=== PATIENT | male | born 1950 | race Caucasian/White ===

== ENCOUNTER 2017-05-06 22:08 | Inpatient (IN) | payer OTHER ==
[~2017-05-06] VITALS: Ht 172.7 cm; Wt 142.0 kg
[2017-05-06] MEDS ORDERED: FUROSEMIDE 40 MG/4 ML VIAL ONE (22:18)
[2017-05-06] MEDS ORDERED: methylPREDNISolone SOD SUCC 125 MG/2 ML VL ONE (22:18)
[2017-05-06 22:50] LABS: Basophils # (auto) 0.1 uL; Basophils % (auto) 0.5 % (0.0-2.0); Eosinophils # (auto) 0.3 uL; Eosinophils % (auto) 2.9 % (0.0-7.0); Hematocrit 45.6 % (41.0-53.0); Hemoglobin 14.9 g/dL (13.5-17.5); Lymphocytes % (auto) 20.2 % (10.0-50.0); Mean Corpuscular Hemoglobin 27.5 pg (28.0-32.0); Mean Corpuscular Hgb Conc. 32.8 g/dL (32.0-36.0); Mean Corpuscular Volume 83.8 fL (80.0-100.0); Monocytes # (auto) 1.1 uL; Monocytes % (auto) 11.5 % (0.0-12.0); Neutrophils # (auto) 6.5 uL; Neutrophils % (auto) 64.9 % (37.0-80.0); Platelet Count (auto) 262 10^3/uL (140-450); Red Blood Cells 5.44 10^6/uL (4.5-5.90); Red Cell Distribution Width 15.8 % (11.8-14.3)
[2017-05-06 23:00] LABS: INR 1.1 (0.9-1.15); Partial Thromboplastin Time 27.3 sec (22.64-33.71)
[2017-05-06] MEDS ORDERED: IPRATROPIUM BROM 0.5 MG/2.5ML INH SOL NEB ONE (23:00)
[2017-05-06] MEDS ORDERED: ALBUTEROL SULF 2.5 MG/0.5ML(0.5%) NEB SOLN NEB ONE (23:00)
[2017-05-06 23:29] LABS: Albumin 4.2 g/dL (3.4-5.0); BUN/Creatinine Ratio 18.9; Bilirubin, Total 0.4 mg/dL (0.2-1.0); Calcium 8.6 mg/dL (8.5-10.1); Magnesium 2.3 mg/dL (1.6-2.6); Total Protein 8.9 g/dL (6.4-8.2)
[2017-05-06] MEDS ORDERED: methylPREDNISolone SOD SUCC 125 MG/2 ML VL IV ONE (23:30)
[2017-05-06] MEDS ORDERED: FUROSEMIDE 40 MG/4 ML VIAL IV ONE (23:30)
[2017-05-06 23:44] LABS: Urine Bacteria NONE SEEN /hpf (None Seen); Urine Blood Negative /uL (Negative); Urine Specific Gravity 1.007 (1.001-1.035); Urine WBC <1 /hpf (0 - 3)
[2017-05-07] MEDS ORDERED: ACETAMINOPHEN 500 MG TAB PO PRN (06:30)
[2017-05-07] MEDS ORDERED: HYDROcodone-ACET 5/325MG TAB PO PRN (06:30)
[2017-05-07] MEDS ORDERED: DEXTROSE (50%) 50ML SYRG IV PRN (06:30)
[2017-05-07] MEDS ORDERED: ONDANSETRON HCL 4 MG/2 ML VIAL IV PRN (06:30)
[2017-05-07] MEDS: ACCU-CHEK COMFORT CURVE STRIP VI SCH ×4 (08:26→22:06)
[2017-05-07] MEDS: InsuLIN REG 1unit/0.01ml Soln (100units/ml) SC SCH ×3 (08:26→17:21)
[2017-05-07 09:00] VITALS: BP 142/94
[2017-05-07] MEDS ORDERED: SIMV-8 PO (09:07)
[2017-05-07] MEDS ORDERED: FURO20TA3 PO (09:07)
[2017-05-07] MEDS ORDERED: AMLO5TAB2 PO (09:08)
[2017-05-07] MEDS ORDERED: CARV12.544 PO (09:09)
[2017-05-07] MEDS ORDERED: LISI40TA PO (09:10)
[2017-05-07] MEDS ORDERED: METF-370 PO (09:10)
[2017-05-07] MEDS ORDERED: ASPI81TA27 PO (09:11)
[2017-05-07] MEDS ORDERED: FUROSEMIDE 40 MG/4 ML VIAL IV SCH (10:00)
[2017-05-07] MEDS: ALBUTEROL SULF 2.5 MG/0.5ML(0.5%) NEB SOLN NEB SCH ×2 (12:17→19:47)
[2017-05-07] MEDS: IPRATROPIUM BROM 0.5 MG/2.5ML INH SOL NEB SCH ×2 (12:17→19:47)
[2017-05-07 12:36] LABS: Basophils # (auto) 0 uL; Basophils % (auto) 0.1 % (0.0-2.0); Eosinophils # (auto) 0 uL; Hematocrit 44.3 % (41.0-53.0); Hemoglobin 14.4 g/dL (13.5-17.5); Lymphocytes # (auto) 0.6 uL; Lymphocytes % (auto) 8.4 % (10.0-50.0); Mean Corpuscular Hemoglobin 27.2 pg (28.0-32.0); Mean Corpuscular Hgb Conc. 32.5 g/dL (32.0-36.0); Mean Corpuscular Volume 83.6 fL (80.0-100.0); Monocytes # (auto) 0.1 uL; Neutrophils # (auto) 6.1 uL; Neutrophils % (auto) 89.5 % (37.0-80.0); Platelet Count (auto) 255 10^3/uL (140-450); Red Blood Cells 5.31 10^6/uL (4.5-5.90); Red Cell Distribution Width 15.7 % (11.8-14.3); White Blood Cell 6.8 10^3/uL (4.4-10.8)
[2017-05-07 12:39] VITALS: BP 136/82
[2017-05-07 12:53] LABS: BUN/Creatinine Ratio 15.4; Calcium 8.5 mg/dL (8.5-10.1); Potassium 4.1 mmol/L (3.5-5.1)
[2017-05-07 13:12] VITALS: BP 147/72
[2017-05-07] MEDS: METOLAZONE 5 MG TAB PO SCH (16:00)
[2017-05-07 17:21] VITALS: BP 145/77
[2017-05-07] MEDS ORDERED: PATIENTS OWN MEDICATION (Simvastatin 1 TAB) PO SCH (18:00)
[2017-05-07] MEDS: FUROSEMIDE 40 MG/4 ML VIAL IV SCH (19:50)
[2017-05-07 22:00] VITALS: BP 141/76
[2017-05-07] MEDS ORDERED: InsuLIN REG 1unit/0.01ml Soln (100units/ml) SC SCH (22:00)
[2017-05-07] MEDS: CARVEDILOL 12.5 MG TAB PO SCH (22:04)
[2017-05-08] MEDS: IPRATROPIUM BROM 0.5 MG/2.5ML INH SOL NEB SCH ×3 (00:38→12:38)
[2017-05-08] MEDS: ALBUTEROL SULF 2.5 MG/0.5ML(0.5%) NEB SOLN NEB SCH ×3 (00:38→12:38)
[2017-05-08 05:10] VITALS: BP 120/62
[2017-05-08] MEDS: ACCU-CHEK COMFORT CURVE STRIP VI SCH ×3 (05:24→16:40)
[2017-05-08] MEDS: InsuLIN REG 1unit/0.01ml Soln (100units/ml) SC SCH ×3 (05:49→16:40)
[2017-05-08 06:30] LABS: Calcium 8.8 mg/dL (8.5-10.1); Magnesium 2.3 mg/dL (1.6-2.6); Potassium 3.9 mmol/L (3.5-5.1)
[2017-05-08 06:32] LABS: BUN/Creatinine Ratio 27.4
[2017-05-08 09:00] VITALS: BP 114/55
[2017-05-08] MEDS ORDERED: amLODIPine BESYLATE 5 MG TAB PO SCH (10:00)
[2017-05-08] MEDS ORDERED: PATIENTS OWN MEDICATION (Lisinopril 40 MG) PO SCH (10:00)
[2017-05-08] MEDS ORDERED: ASPirin-EC 81 mg tab PO SCH (10:00)
[2017-05-08] MEDS ORDERED: LISINOPRIL 20 MG TAB PO SCH (10:00)
[2017-05-08] MEDS: CARVEDILOL 12.5 MG TAB PO SCH (10:12)
[2017-05-08] MEDS: FUROSEMIDE 40 MG/4 ML VIAL IV SCH (10:12)
[2017-05-08] MEDS: METOLAZONE 5 MG TAB PO SCH (10:14)
[2017-05-08 13:00] VITALS: BP 110/57
[2017-05-08 17:00] VITALS: BP 130/70
[2017-05-08] MEDS ORDERED: PATIENTS OWN MEDICATION (xarelto 20 MG) PO SCH (17:00)
[2017-05-08] MEDS ORDERED: RIVAROXABAN 20 MG TAB PO SCH (18:00)
[2017-05-08] MEDS ORDERED: PRAVASTATIN SODIUM 20 MG TAB PO SCH (22:00)
== END 2017-05-08 17:00 | disposition home health service (06) | DRG 637 ==
LOC: ER 22:08 → TELE 22:09 → TELE-WESTW 05-07 08:33
PROVIDERS: ADMIT Nurse Practitioner Family; ATTEND Internal Medicine
DX: E11.65 Type 2 diabetes mellitus with hyperglycemia (principal); I50.43 Acute on chronic combined systolic (congestive) and diastolic (congestive) heart failure; E87.2 Acidosis; E66.01 Morbid (severe) obesity due to excess calories; J44.1 Chronic obstructive pulmonary disease with (acute) exacerbation; Z68.42 Body mass index [BMI] 45.0-49.9, adult; I11.0 Hypertensive heart disease with heart failure; Z95.1 Presence of aortocoronary bypass graft; I48.0 Paroxysmal atrial fibrillation; E78.5 Hyperlipidemia, unspecified; E66.9 Obesity, unspecified; I25.10 Atherosclerotic heart disease of native coronary artery without angina pectoris; Z83.3 Family history of diabetes mellitus; Z87.891 Personal history of nicotine dependence; Z71.89 Other specified counseling
CPT/HCPCS: 36415; 36600; 71045; 80048; 80053; 81001; 82805; 82962; 83036; 83605; 83735; 83880; 84484; 85025; 85379; 85610; 85730; 87040; 93005; 93306; 94640; 94761; 96374; 96375; J1815

== ENCOUNTER 2017-09-20 09:20 | Inpatient (IN) | payer OTHER ==
[~2017-09-20] VITALS: Ht 172.7 cm; Wt 137.0 kg
[~2017-09-20 09:20] MED LIST: AMLO5TAB2 PO; ASPI81TA27 PO; CARV12.544 PO; LISI40TA PO; METF-370 PO; SIMV-8 PO
[2017-09-20 10:05] LABS: Basophils # (auto) 0.1 uL; Eosinophils # (auto) 0.2 uL; Mean Corpuscular Volume 82.4 fL (80.0-100.0); Monocytes # (auto) 0.8 uL; Neutrophils # (auto) 5.3 uL; Red Cell Distribution Width 16.2 % (11.8-14.3)
[2017-09-20 10:07] LABS: Eosinophils % (auto) 2.6 % (0.0-7.0); Hematocrit 43.7 % (41.0-53.0); Hemoglobin 14.1 g/dL (13.5-17.5); Lymphocytes # (auto) 1.6 uL; Lymphocytes % (auto) 19.7 % (10.0-50.0); Mean Corpuscular Hemoglobin 26.5 pg (28.0-32.0); Mean Corpuscular Hgb Conc. 32.2 g/dL (32.0-36.0); Monocytes % (auto) 10.3 % (0.0-12.0); Neutrophils % (auto) 66.4 % (37.0-80.0); Platelet Count (auto) 266 10^3/uL (140-450)
[2017-09-20 10:09] LABS: Urine Bacteria NONE SEEN /hpf (None Seen); Urine Blood Negative /uL (Negative); Urine WBC 1 /hpf (0 - 3)
[2017-09-20 10:23] LABS: Albumin 3.7 g/dL (3.4-5.0); BUN/Creatinine Ratio 17.4; Calcium 8.8 mg/dL (8.5-10.1)
[2017-09-20 10:26] LABS: Bilirubin, Total 0.7 mg/dL (0.2-1.0); Total Protein 8.6 g/dL (6.4-8.2)
[2017-09-20] MEDS ORDERED: TETANUS-DIPTH-ACEL PERTUSSIS 0.5ML SYRG IM ONE (11:00)
[2017-09-20] MEDS ORDERED: SPIRONOLACTONE 25 MG TAB PO ONE (11:00)
[2017-09-20] MEDS ORDERED: FUROSEMIDE 40 MG/4 ML VIAL IV ONE ×2 (11:00→13:45)
[2017-09-20] MEDS ORDERED: MORPHINE SULFATE 8mg/ml INJ SDV IV PRN ×3 (11:00→13:30)
[2017-09-20] MEDS ORDERED: SODIUM CHLORIDE 0.9% 1,000 ML IV ONE (11:00)
[2017-09-20 11:48] LABS: Magnesium 2.5 mg/dL (1.6-2.6)
[2017-09-20] MEDS ORDERED: FURO40TA4 PO (12:45)
[2017-09-20] MEDS ORDERED: RIVA20TA PO (12:47)
[2017-09-20] MEDS ORDERED: TEMAZEPAM 15 MG CAP PO PRN (13:30)
[2017-09-20] MEDS ORDERED: LORazepam 0.5 MG TAB PO PRN (13:30)
[2017-09-20] MEDS ORDERED: ACETAMINOPHEN 500 MG TAB PO PRN (13:30)
[2017-09-20] MEDS ORDERED: PROMETHAZINE HCL 25 MG/ML 1ML IV PRN (13:30)
[2017-09-20] MEDS ORDERED: NITROGLYCERIN 0.4 MG SL TAB SL PRN (13:30)
[2017-09-20] MEDS ORDERED: ALBUTEROL SULF 2.5 MG/0.5ML(0.5%) NEB SOLN NEB PRN (13:30)
[2017-09-20] MEDS ORDERED: DEXTROSE (50%) 50ML SYRG IV PRN (13:30)
[2017-09-20] MEDS ORDERED: HYDROcodone-ACET 5/325MG TAB PO PRN (13:30)
[2017-09-20] MEDS ORDERED: ASPirin-EC 81 mg tab PO ONE (13:45)
[2017-09-20] MEDS ORDERED: cefTRIAXone 1GM/10ml IVPUSH 10 ML IV ONE (13:45)
[2017-09-20] MEDS ORDERED: AZITHROMYCIN 500MG/ 250ML 250 ML IV ONE (13:45)
[2017-09-20] MEDS ORDERED: amLODIPine BESYLATE 5 MG TAB PO ONE (13:45)
[2017-09-20] MEDS ORDERED: LISINOPRIL 20 MG TAB PO ONE (13:45)
[2017-09-20] MEDS ORDERED: RIVAROXABAN 20 MG TAB PO ONE (13:45)
[2017-09-20] MEDS ORDERED: PANTOPRAZOLE 40 MG TAB PO ONE (13:45)
[2017-09-20] MEDS ORDERED: NITROGLYCERIN 0.2MG/HR TOPICAL PATCH TD ONE (13:45)
[2017-09-20] MEDS ORDERED: POTASSIUM CHL 20 Meq TABLET PO ONE (13:45)
[2017-09-20] MEDS ORDERED: CARVEDILOL 12.5 MG TAB PO ONE (13:45)
[2017-09-20] MEDS: LISINOPRIL 20 MG TAB PO SCH (13:52)
[2017-09-20 14:15] LABS: Alcohol, Urine < 3.0 mg/dL (0-5); Amphetamine Screen, Urine NEGATIVE (NEGATIVE); Barbiturate Scree,Urine NEGATIVE (NEGATIVE); Benzodiazephine Screen, Urine NEGATIVE (NEGATIVE); Cannabinoid Screen, Urine NEGATIVE (NEGATIVE); Cocaine Screen, Urine NEGATIVE (NEGATIVE); Opiate Scree,Urine NEGATIVE (NEGATIVE); Phencyclidine Screen, Urine NEGATIVE (NEGATIVE)
[2017-09-20] MEDS: SODIUM CHLOR 0.9% PF (SALINE LOCK) 10ML VIAL/SYR IV SCH ×2 (14:19→22:13)
[2017-09-20] MEDS: ACCU-CHEK COMFORT CURVE STRIP VI SCH ×2 (17:29→22:13)
[2017-09-20] MEDS: InsuLIN REG 1unit/0.01ml Soln (100units/ml) SC SCH ×2 (17:30→22:14)
[2017-09-20] MEDS: LEVOFLOXACIN 500MG 100 ML IV SCH (17:40)
[2017-09-20] MEDS: ALBUTEROL SULF 2.5 MG/0.5ML(0.5%) NEB SOLN NEB SCH (18:25)
[2017-09-20 20:22] VITALS: BP 145/85
[2017-09-20 20:30] VITALS: BP 114/43
[2017-09-20] MEDS ORDERED: ATORVASTATIN 20 MG TAB PO SCH (22:00)
[2017-09-20] MEDS: CARVEDILOL 12.5 MG TAB PO SCH (22:12)
[2017-09-20] MEDS: CLINDAMYCIN 600MG IV 50 ML IV SCH (22:13)
[2017-09-21] MEDS: ALBUTEROL SULF 2.5 MG/0.5ML(0.5%) NEB SOLN NEB SCH ×3 (00:51→13:26)
[2017-09-21 03:36] VITALS: BP 105/53
[2017-09-21 05:32] VITALS: BP 97/42
[2017-09-21] MEDS: SODIUM CHLOR 0.9% PF (SALINE LOCK) 10ML VIAL/SYR IV SCH ×2 (05:34→14:34)
[2017-09-21] MEDS: CLINDAMYCIN 600MG IV 50 ML IV SCH ×2 (05:34→14:34)
[2017-09-21] MEDS: InsuLIN REG 1unit/0.01ml Soln (100units/ml) SC SCH ×3 (05:58→17:00)
[2017-09-21] MEDS: ACCU-CHEK COMFORT CURVE STRIP VI SCH ×3 (05:58→17:05)
[2017-09-21 07:53] LABS: Cholesterol 72 mg/dL (< 200); HDL Cholesterol 18 mg/dL (40-59); LDL Cholesterol 46 mg/dL (< 100); Triglycerides 132 mg/dL (< 150)
[2017-09-21 09:00] VITALS: BP 98/45
[2017-09-21] MEDS ORDERED: cefTRIAXone 1GM/10ml IVPUSH 10 ML IV SCH (09:00)
[2017-09-21] MEDS ORDERED: ASPirin-EC 81 mg tab PO SCH (10:00)
[2017-09-21] MEDS: CARVEDILOL 12.5 MG TAB PO SCH (10:00)
[2017-09-21] MEDS ORDERED: RIVAROXABAN 20 MG TAB PO SCH (10:00)
[2017-09-21] MEDS ORDERED: AZITHROMYCIN 500MG/ 250ML 250 ML IV SCH (10:00)
[2017-09-21] MEDS ORDERED: NITROGLYCERIN 0.2MG/HR TOPICAL PATCH TD SCH (10:00)
[2017-09-21] MEDS ORDERED: amLODIPine BESYLATE 5 MG TAB PO SCH (10:00)
[2017-09-21] MEDS ORDERED: ENALAPRIL MALEATE 2.5 MG TAB PO SCH (10:00)
[2017-09-21] MEDS ORDERED: POTASSIUM CHL 20 Meq TABLET PO SCH (10:00)
[2017-09-21] MEDS ORDERED: PANTOPRAZOLE 40 MG TAB PO SCH (10:00)
[2017-09-21] MEDS: LISINOPRIL 20 MG TAB PO SCH (10:00)
[2017-09-21] MEDS ORDERED: FUROSEMIDE 40 MG/4 ML VIAL IV SCH (10:00)
[2017-09-21] MEDS: LEVOFLOXACIN 500MG 100 ML IV SCH (10:36)
[2017-09-21 13:00] VITALS: BP 119/64
[2017-09-21] MEDS ORDERED: CLIN1CAP4 PO (16:58)
[2017-09-21 17:00] VITALS: BP 118/49
[2017-09-21 17:50] VITALS: BP 118/49
== END 2017-09-21 19:20 | disposition home or self-care (01) | DRG 602 ==
LOC: ER 09:23 → TELE 09:24 → TELE-WESTW 20:22
PROVIDERS: ADMIT Internal Medicine; ATTEND Internal Medicine
DX: L03.116 Cellulitis of left lower limb (principal); I50.23 Acute on chronic systolic (congestive) heart failure; Z68.42 Body mass index [BMI] 45.0-49.9, adult; I42.9 Cardiomyopathy, unspecified; I11.0 Hypertensive heart disease with heart failure; L03.115 Cellulitis of right lower limb; E78.5 Hyperlipidemia, unspecified; E11.65 Type 2 diabetes mellitus with hyperglycemia; E66.01 Morbid (severe) obesity due to excess calories; I87.2 Venous insufficiency (chronic) (peripheral); I87.8 Other specified disorders of veins; I48.0 Paroxysmal atrial fibrillation; E78.00 Pure hypercholesterolemia, unspecified; I25.10 Atherosclerotic heart disease of native coronary artery without angina pectoris; F41.9 Anxiety disorder, unspecified; G47.00 Insomnia, unspecified; Z82.49 Family history of ischemic heart disease and other diseases of the circulatory system; I25.2 Old myocardial infarction; Z23 Encounter for immunization; Z79.899 Other long term (current) drug therapy; Z83.3 Family history of diabetes mellitus
CPT/HCPCS: 36415; 71045; 71046; 80053; 80061; 80307; 81001; 82550; 82962; 83036; 83735; 83880; 84443; 84484; 85025; 85379; 86141; 90471; 90715; 93005; 94640; 96365; 96372; 96375; J1815; J1956; J3490

== ENCOUNTER 2017-12-25 08:41 | Inpatient (IN) | payer OTHER ==
[~2017-12-25] VITALS: Ht 172.7 cm; Wt 136.5 kg
[~2017-12-25 08:41] MED LIST changes: +AMLO5TAB13 PO; -AMLO5TAB2 PO; +CLIN1CAP4 PO; +FURO40TA4 PO; +RIVA20TA PO
[2017-12-25 09:46] LABS: Urine Bacteria NONE SEEN /hpf (None Seen); Urine Blood Negative /uL (Negative); Urine Mucus FEW (None Seen); Urine Specific Gravity 1.009 (1.001-1.035); Urine WBC 2 /hpf (0 - 3)
[2017-12-25 09:57] LABS: Eosinophils # (auto) 0.3 uL; Eosinophils % (auto) 3.2 % (0.0-7.0); Hemoglobin 13.1 g/dL (13.5-17.5); Lymphocytes # (auto) 1.2 uL; Monocytes # (auto) 0.7 uL; Monocytes % (auto) 8.6 % (0.0-12.0)
[2017-12-25 10:01] LABS: Basophils # (auto) 0.1 uL; Basophils % (auto) 0.7 % (0.0-2.0); Hematocrit 40.8 % (41.0-53.0); Lymphocytes % (auto) 14.5 % (10.0-50.0); Mean Corpuscular Hemoglobin 25.9 pg (28.0-32.0); Mean Corpuscular Hgb Conc. 32.1 g/dL (32.0-36.0); Mean Corpuscular Volume 80.9 fL (80.0-100.0); Neutrophils # (auto) 6.1 uL; Platelet Count (auto) 237 10^3/uL (140-450); Red Blood Cells 5.04 10^6/uL (4.5-5.90); White Blood Cell 8.3 10^3/uL (4.4-10.8)
[2017-12-25 10:17] LABS: Alanine Aminotransferase 19 U/L (16-61); Albumin 3.3 g/dL (3.4-5.0); Anion Gap 7 (5-15); Aspartate Aminotransferase 13 U/L (15-37); BUN/Creatinine Ratio 16.1; Blood Urea Nitrogen 14 mg/dL (7-18); Calcium 8.2 mg/dL (8.5-10.1); Carbon Dioxide 27 mmol/L (21-32); Chloride 103 mmol/L (98-107); GFR African American 113 mL/min; GFR Non-African American 93 mL/min; Glucose 182 mg/dL (74-106); Sodium 137 mmol/L (136-145)
[2017-12-25 10:22] LABS: Alkaline Phosphatase 73 U/L (45-117); Bilirubin, Total 0.6 mg/dL (0.2-1.0); Total Protein 7.8 g/dL (6.4-8.2)
[2017-12-25] MEDS ORDERED: DEXTROSE (50%) 50ML SYRG IV PRN (13:00)
[2017-12-25] MEDS ORDERED: FUROSEMIDE 40 MG/4 ML VIAL IV ONE (13:00)
[2017-12-25] MEDS ORDERED: POTASSIUM CHL 20 Meq TABLET PO ONE (13:00)
[2017-12-25] MEDS ORDERED: NITROGLYCERIN 0.4 MG SL TAB SL PRN (13:00)
[2017-12-25] MEDS ORDERED: MORPHINE SULF INJ 2 MG/ML SYRINGE 1ML IV PRN (13:00)
[2017-12-25] MEDS: ceFAZolin 1GM/50ML 50 ML IV SCH ×2 (14:00→21:36)
[2017-12-25] MEDS: InsuLIN REG 1unit/0.01ml Soln (100units/ml) SC SCH ×2 (17:00→22:30)
[2017-12-25] MEDS: ACCU-CHEK COMFORT CURVE STRIP VI SCH ×2 (17:00→21:37)
[2017-12-25] MEDS: FUROSEMIDE 40 MG/4 ML VIAL IV SCH (18:00)
[2017-12-25] MEDS: RIVAROXABAN 20 MG TAB PO SCH (18:00)
[2017-12-25 21:00] VITALS: BP 122/68
[2017-12-25] MEDS: ATORVASTATIN 20 MG TAB PO SCH (21:37)
[2017-12-25] MEDS: CARVEDILOL 12.5 MG TAB PO SCH (21:37)
[2017-12-25] MEDS: POTASSIUM CHL 20 Meq TABLET PO SCH (21:37)
[2017-12-25 22:00] VITALS: BP 118/64
[2017-12-26 04:53] VITALS: BP 131/74
[2017-12-26] MEDS: ceFAZolin 1GM/50ML 50 ML IV SCH ×3 (05:59→20:17)
[2017-12-26 06:00] LABS: Basophils # (auto) 0.1 uL; Basophils % (auto) 0.5 % (0.0-2.0); Eosinophils # (auto) 0.4 uL; Eosinophils % (auto) 3.6 % (0.0-7.0); Hematocrit 43.7 % (41.0-53.0); Hemoglobin 14.3 g/dL (13.5-17.5); Lymphocytes # (auto) 1.4 uL; Lymphocytes % (auto) 12.9 % (10.0-50.0); Mean Corpuscular Hgb Conc. 32.7 g/dL (32.0-36.0); Mean Corpuscular Volume 82.6 fL (80.0-100.0); Monocytes % (auto) 9.3 % (0.0-12.0); Neutrophils # (auto) 7.9 uL; Neutrophils % (auto) 73.7 % (37.0-80.0); Nucleated Red Blood Cells % 0.2 %; Platelet Count (auto) 213 10^3/uL (140-450); Red Blood Cells 5.28 10^6/uL (4.5-5.90); Red Cell Distribution Width 17.3 % (11.8-14.3); White Blood Cell 10.7 10^3/uL (4.4-10.8)
[2017-12-26] MEDS: FUROSEMIDE 40 MG/4 ML VIAL IV SCH ×2 (06:00→17:47)
[2017-12-26] MEDS: ACCU-CHEK COMFORT CURVE STRIP VI SCH ×4 (06:00→21:33)
[2017-12-26] MEDS: InsuLIN REG 1unit/0.01ml Soln (100units/ml) SC SCH ×4 (06:01→21:33)
[2017-12-26 06:25] LABS: Calcium 8.7 mg/dL (8.5-10.1); Potassium 4.2 mmol/L (3.5-5.1)
[2017-12-26 09:00] VITALS: BP 115/65
[2017-12-26] MEDS: LISINOPRIL 20 MG TAB PO SCH (09:22)
[2017-12-26] MEDS: POTASSIUM CHL 20 Meq TABLET PO SCH ×2 (09:23→20:16)
[2017-12-26] MEDS: CARVEDILOL 12.5 MG TAB PO SCH ×2 (09:23→20:17)
[2017-12-26] MEDS ORDERED: ENOXAPARIN SOD 40 MG/0.4 ML SYRINGE SC SCH (10:00)
[2017-12-26] MEDS ORDERED: METOLAZONE 5 MG TAB PO ONE (11:45)
[2017-12-26 13:00] VITALS: BP 107/65
[2017-12-26 17:00] VITALS: BP 123/71
[2017-12-26] MEDS: RIVAROXABAN 20 MG TAB PO SCH (17:42)
[2017-12-26] MEDS: ATORVASTATIN 20 MG TAB PO SCH (20:17)
[2017-12-26 22:01] VITALS: BP 133/61
[2017-12-27 05:27] VITALS: BP 122/72
[2017-12-27] MEDS: FUROSEMIDE 40 MG/4 ML VIAL IV SCH ×2 (05:39→17:54)
[2017-12-27] MEDS: ceFAZolin 1GM/50ML 50 ML IV SCH ×2 (05:39→13:53)
[2017-12-27] MEDS: ACCU-CHEK COMFORT CURVE STRIP VI SCH ×4 (05:40→22:29)
[2017-12-27] MEDS: InsuLIN REG 1unit/0.01ml Soln (100units/ml) SC SCH ×4 (05:40→22:29)
[2017-12-27 07:48] LABS: BUN/Creatinine Ratio 21.1; Calcium 9.1 mg/dL (8.5-10.1); Potassium 3.9 mmol/L (3.5-5.1)
[2017-12-27 08:58] VITALS: BP 118/58
[2017-12-27] MEDS: LISINOPRIL 20 MG TAB PO SCH (09:29)
[2017-12-27] MEDS: CARVEDILOL 12.5 MG TAB PO SCH ×2 (09:30→22:28)
[2017-12-27] MEDS: POTASSIUM CHL 20 Meq TABLET PO SCH ×2 (09:30→22:28)
[2017-12-27] MEDS: METOLAZONE 5 MG TAB PO SCH (09:30)
[2017-12-27 13:00] VITALS: BP 105/54
[2017-12-27 17:25] VITALS: BP 118/66
[2017-12-27] MEDS: RIVAROXABAN 20 MG TAB PO SCH (17:54)
[2017-12-27] MEDS: CEPHALEXIN 250 MG CAP PO SCH (17:55)
[2017-12-27] MEDS: ATORVASTATIN 20 MG TAB PO SCH (22:28)
[2017-12-28] MEDS: CEPHALEXIN 250 MG CAP PO SCH ×3 (01:18→11:47)
[2017-12-28 04:59] VITALS: BP 114/60
[2017-12-28] MEDS: FUROSEMIDE 40 MG/4 ML VIAL IV SCH (06:45)
[2017-12-28] MEDS: InsuLIN REG 1unit/0.01ml Soln (100units/ml) SC SCH ×2 (06:46→11:30)
[2017-12-28] MEDS: ACCU-CHEK COMFORT CURVE STRIP VI SCH ×2 (06:47→11:30)
[2017-12-28 08:39] VITALS: BP 113/59
[2017-12-28] MEDS: POTASSIUM CHL 20 Meq TABLET PO SCH (09:49)
[2017-12-28] MEDS: CARVEDILOL 12.5 MG TAB PO SCH (09:50)
[2017-12-28] MEDS: LISINOPRIL 20 MG TAB PO SCH (09:50)
[2017-12-28] MEDS: METOLAZONE 5 MG TAB PO SCH (09:50)
[2017-12-28 13:14] VITALS: BP 117/60
== END 2017-12-28 15:54 | disposition home or self-care (01) | DRG 602 ==
LOC: ER 08:41 → TELE 08:42 → TELE-WESTW 19:42
PROVIDERS: ADMIT Internal Medicine; ATTEND Internal Medicine
DX: L03.115 Cellulitis of right lower limb (principal); I50.43 Acute on chronic combined systolic (congestive) and diastolic (congestive) heart failure; Z68.42 Body mass index [BMI] 45.0-49.9, adult; E78.5 Hyperlipidemia, unspecified; E66.01 Morbid (severe) obesity due to excess calories; E11.9 Type 2 diabetes mellitus without complications; I11.0 Hypertensive heart disease with heart failure; I25.10 Atherosclerotic heart disease of native coronary artery without angina pectoris; R07.0 Pain in throat; J44.9 Chronic obstructive pulmonary disease, unspecified; Z83.3 Family history of diabetes mellitus; Z95.1 Presence of aortocoronary bypass graft
CPT/HCPCS: 36415; 71045; 80048; 80053; 81001; 82962; 83036; 83880; 84484; 85025; 93005; 94761; 96365; 96375; 96376; J0690; J1815

== ENCOUNTER → 2018-01-22 | Outpatient (CLI) | payer OTHER ==
[2018-01-22 10:07] LABS: Calcium 9.2 mg/dL (8.5-10.1); Potassium 5.2 mmol/L (3.5-5.1)
[2018-01-22 10:10] LABS: BUN/Creatinine Ratio 25.2
== END | disposition home or self-care (01) ==
LOC: LAB 09:20
PROVIDERS: ATTEND Internal Medicine Pulmonary Disease
DX: R06.00 Dyspnea, unspecified (principal); I10 Essential (primary) hypertension; E11.9 Type 2 diabetes mellitus without complications
CPT/HCPCS: 36415; 80048; 83880

== ENCOUNTER → 2018-01-22 | Outpatient (CLI) | payer OTHER ==
[~2018-01-22] MED LIST changes: +ALBUTEROL SULF 2.5 MG/0.5ML(0.5%) NEB SOLN ONE
== END | disposition home or self-care (01) ==
LOC: RT 08:26
PROVIDERS: ATTEND Internal Medicine Pulmonary Disease
DX: R06.00 Dyspnea, unspecified (principal)
CPT/HCPCS: 94060; J7611

== ENCOUNTER → 2018-02-28 | Outpatient (CLI) | payer OTHER ==
[~2018-02-28] MED LIST changes: -ALBUTEROL SULF 2.5 MG/0.5ML(0.5%) NEB SOLN ONE
== END | disposition home or self-care (01) ==
LOC: XYW 10:21
PROVIDERS: ATTEND Internal Medicine
DX: I11.0 Hypertensive heart disease with heart failure (principal); I50.9 Heart failure, unspecified; E11.9 Type 2 diabetes mellitus without complications; J44.9 Chronic obstructive pulmonary disease, unspecified; Z87.891 Personal history of nicotine dependence
CPT/HCPCS: 93306

== ENCOUNTER → 2018-10-01 | Outpatient (CLI) | payer OTHER ==
[~2018-10-01] MED LIST changes: +ALL300T PO; -AMLO5TAB13 PO; -ASPI81TA27 PO; +CHOL1000T PO; -CLIN1CAP4 PO; +CLOP75TA28 PO; +PANT40T PO; -RIVA20TA PO
[2018-10-01 07:58] LABS: Basophils # (auto) 0.1 uL; Basophils % (auto) 0.7 % (0.0-2.0); Eosinophils # (auto) 0.3 uL; Eosinophils % (auto) 4.4 % (0.0-7.0); Hematocrit 35.6 % (41.0-53.0); Hemoglobin 11.6 g/dL (13.5-17.5); Lymphocytes # (auto) 1.3 uL; Lymphocytes % (auto) 17.7 % (10.0-50.0); Mean Corpuscular Hemoglobin 28.2 pg (28.0-32.0); Mean Corpuscular Hgb Conc. 32.5 g/dL (32.0-36.0); Mean Corpuscular Volume 86.6 fL (80.0-100.0); Monocytes # (auto) 0.7 uL; Monocytes % (auto) 9.6 % (0.0-12.0); Neutrophils % (auto) 67.6 % (37.0-80.0); Platelet Count (auto) 240 10^3/uL (140-450); Red Blood Cells 4.11 10^6/uL (4.5-5.90); Red Cell Distribution Width 16.5 % (11.8-14.3); White Blood Cell 7.3 10^3/uL (4.4-10.8)
[2018-10-01 08:26] LABS: Albumin 3.5 g/dL (3.4-5.0); Calcium 8.8 mg/dL (8.5-10.1); Potassium 4.2 mmol/L (3.5-5.1)
[2018-10-01 08:30] LABS: BUN/Creatinine Ratio 25.5; Bilirubin, Total 0.2 mg/dL (0.2-1.0); Total Protein 8.1 g/dL (6.4-8.2)
== END | disposition home or self-care (01) ==
LOC: LAB 07:23
PROVIDERS: ATTEND Internal Medicine
DX: E22.1 Hyperprolactinemia (principal)
CPT/HCPCS: 36415; 80053; 85025

== ENCOUNTER → 2019-05-24 | Outpatient (CLI) | payer OTHER ==
[~2019-05-24] MED LIST changes: -CHOL1000T PO; +[UNRECOGNIZED DRUG - CODE] PO
[2019-05-24 10:03] LABS: Urine Bacteria NONE SEEN /hpf (None Seen); Urine Blood Negative /uL (Negative); Urine Specific Gravity 1.006 (1.001-1.035); Urine WBC <1 /hpf (0 - 3)
[2019-05-24 10:05] LABS: Basophils # (auto) 0 uL; Basophils % (auto) 0.6 % (0.0-2.0); Eosinophils # (auto) 0.3 uL; Eosinophils % (auto) 4.7 % (0.0-7.0); Hematocrit 43.6 % (41.0-53.0); Hemoglobin 14.3 g/dL (13.5-17.5); Lymphocytes # (auto) 1.5 uL; Lymphocytes % (auto) 20.8 % (10.0-50.0); Mean Corpuscular Hemoglobin 27.5 pg (28.0-32.0); Mean Corpuscular Hgb Conc. 32.7 g/dL (32.0-36.0); Monocytes # (auto) 0.6 uL; Neutrophils # (auto) 4.5 uL; Neutrophils % (auto) 64.9 % (37.0-80.0); Nucleated Red Blood Cells % 0.1 %; Platelet Count (auto) 219 10^3/uL (140-450); Red Blood Cells 5.19 10^6/uL (4.5-5.90); Red Cell Distribution Width 16.4 % (11.8-14.3)
[2019-05-24 10:52] LABS: Potassium 4.4 mmol/L (3.5-5.1)
[2019-05-24 10:58] LABS: Creatinine, Urine 15 mg/dL (30.0-125.0); Protein, Urine < 5.0 mg/dL (0.0-11.9)
[2019-05-24 11:08] LABS: Albumin 3.8 g/dL (3.4-5.0); BUN/Creatinine Ratio 16.4; Bilirubin, Total 0.3 mg/dL (0.2-1.0); Calcium 8.9 mg/dL (8.5-10.1); Magnesium 2.1 mg/dL (1.6-2.6); Phosphorus 3.5 mg/dL (2.5-4.90); Total Protein 8.1 g/dL (6.4-8.2)
[2019-05-24 12:13] LABS: Micro Albumin 5.17 mg/L (0-30.0); Sodium Urine 115 mmol/L (40-220)
== END | disposition home or self-care (01) ==
LOC: LAB 09:01
PROVIDERS: ATTEND Internal Medicine
DX: E11.22 Type 2 diabetes mellitus with diabetic chronic kidney disease (principal); I12.0 Hypertensive chronic kidney disease with stage 5 chronic kidney disease or end stage renal disease; N18.6 End stage renal disease
CPT/HCPCS: 36415; 80053; 81001; 82043; 82306; 82570; 83036; 83735; 83970; 84100; 84156; 84300; 85025

== ENCOUNTER → 2020-09-08 | Outpatient (CLI) | payer OTHER ==
[~2020-09-08] MED LIST changes: -LISI40TA PO; +LISI40TA11 PO; +POTA10TA51 PO; +[UNRECOGNIZED DRUG - CODE] PO; -[UNRECOGNIZED DRUG - CODE] PO
[2020-09-08 09:46] LABS: Albumin 3.5 g/dL (3.4-5.0); Calcium 8.9 mg/dL (8.5-10.1); Potassium 4.2 mmol/L (3.5-5.1)
[2020-09-08 09:51] LABS: BUN/Creatinine Ratio 14.9; Bilirubin, Total 0.6 mg/dL (0.2-1.0); Total Protein 7.6 g/dL (6.4-8.2)
== END | disposition home or self-care (01) ==
LOC: LAB 08:40
PROVIDERS: ATTEND Internal Medicine
DX: E11.65 Type 2 diabetes mellitus with hyperglycemia (principal); I10 Essential (primary) hypertension
CPT/HCPCS: 36415; 80053; 80061; 82043; 83036

== ENCOUNTER 2020-09-10 14:15 | Observation (INO) | payer OTHER ==
[~2020-09-10] VITALS: Ht 165.1 cm; Wt 126.5 kg
[~2020-09-10 14:15] MED LIST changes: -POTA10TA51 PO
[2020-09-10 14:57] VITALS: BP 132/80
[2020-09-10] MEDS ORDERED: HYDROcodone-ACET 5/325MG TAB PO PRN (15:15)
[2020-09-10] MEDS ORDERED: NITROGLYCERIN 0.4 MG SL TAB SL PRN (15:15)
[2020-09-10] MEDS ORDERED: ONDANSETRON HCL 4 MG/2 ML VIAL IV PRN (15:15)
[2020-09-10] MEDS ORDERED: HYDROmorphone HCL 2 MG/ML VL IV PRN (15:15)
[2020-09-10] MEDS ORDERED: ACETAMINOPHEN 325 MG TAB PO PRN (15:15)
[2020-09-10] MEDS ORDERED: ALUM & MAG HYDROX-SIMETH LIQ(MAALOX) 30 ML PO PRN (15:15)
[2020-09-10] MEDS ORDERED: DOCUSATE SOD 100 MG CAP PO PRN (15:15)
[2020-09-10] MEDS ORDERED: MORPHINE SULF INJ 2 MG/ML SYRINGE 1ML IV PRN (15:15)
[2020-09-10] MEDS ORDERED: FUROSEMIDE 40 MG/4 ML VIAL IV ONE (15:30)
[2020-09-10] MEDS ORDERED: ENOXAPARIN SOD 40 MG/0.4 ML SYRINGE SC ONE (16:30)
[2020-09-10 16:51] VITALS: BP 132/80
[2020-09-10 16:52] LABS: Basophils # (auto) 0.1 10 ^3/uL (0-0.2); Eosinophils # (auto) 0.3 10 ^3/uL (0-0.8); Lymphocytes # (auto) 1.4 10 ^3/uL (0.4-5.4); Monocytes # (auto) 0.7 10 ^3/uL (0-1.3)
[2020-09-10 16:53] LABS: Basophils % (auto) 1.2 % (0.0-2.0); Eosinophils % (auto) 3.2 % (0.0-7.0); Hematocrit 38.5 % (41.0-53.0); Hemoglobin 12.7 g/dL (13.5-17.5); Lymphocytes % (auto) 15.4 % (10.0-50.0); Mean Corpuscular Hemoglobin 26.4 pg (28.0-32.0); Mean Corpuscular Hgb Conc. 32.9 g/dL (32.0-36.0); Mean Corpuscular Volume 80.3 fL (80.0-100.0); Neutrophils # (auto) 6.7 10 ^3/uL (1.6-8.6); Neutrophils % (auto) 72.2 % (37.0-80.0); Platelet Count (auto) 222 10^3/uL (140-450); Red Blood Cells 4.79 10^6/uL (4.5-5.90); Red Cell Distribution Width 17.4 % (11.8-14.3); White Blood Cell 9.3 10^3/uL (4.4-10.8)
[2020-09-10 17:09] LABS: Albumin 3.6 g/dL (3.4-5.0); Anion Gap 6 (5-15); Blood Urea Nitrogen 24 mg/dL (7-18); Calcium 8.7 mg/dL (8.5-10.1); Carbon Dioxide 28 mmol/L (21-32); Chloride 104 mmol/L (98-107); Glucose 123 mg/dL (74-106); Magnesium 2.1 mg/dL (1.6-2.6); Potassium 3.8 mmol/L (3.5-5.1); Sodium 138 mmol/L (136-145)
[2020-09-10 17:17] LABS: Alanine Aminotransferase 16 U/L (16-61); Alkaline Phosphatase 69 U/L (45-117); Aspartate Aminotransferase 18 U/L (15-37); Bilirubin, Total 0.4 mg/dL (0.2-1.0); GFR African American 69 mL/min; GFR Non-African American 57 mL/min; Total Protein 7.6 g/dL (6.4-8.2)
[2020-09-10] MEDS ORDERED: POTA10TA51 PO (17:49)
[2020-09-10 18:25] LABS: Urine Bacteria NONE SEEN /hpf (None Seen); Urine Blood Negative /uL (Negative); Urine Specific Gravity 1.012 (1.001-1.035); Urine WBC <1 /hpf (0 - 3)
[2020-09-10 22:00] VITALS: BP 125/68
[2020-09-10] MEDS: ATORVASTATIN 20 MG TAB PO SCH (22:04)
[2020-09-10] MEDS: SODIUM CHLOR 0.9% PF (SALINE LOCK) 10ML VIAL/SYR IV SCH (22:05)
[2020-09-10] MEDS: CARVEDILOL 12.5 MG TAB PO SCH (22:05)
[2020-09-11 04:59] VITALS: BP 135/76
[2020-09-11] MEDS: SODIUM CHLOR 0.9% PF (SALINE LOCK) 10ML VIAL/SYR IV SCH ×3 (06:23→21:42)
[2020-09-11 06:53] LABS: Calcium 8.7 mg/dL (8.5-10.1); Potassium 3.6 mmol/L (3.5-5.1)
[2020-09-11] MEDS ORDERED: DEXTROSE (50%) 50ML SYRG IV ONE (08:00)
[2020-09-11] MEDS ORDERED: DEXTROSE (50%) 50ML SYRG IV PRN (08:30)
[2020-09-11 09:00] VITALS: BP 138/68
[2020-09-11] MEDS ORDERED: ADENOSINE 105 MG in GIVE UN-DILUTED 0 ML IV ONE (09:00)
[2020-09-11] MEDS ORDERED: ERGOCALCIFEROL 50,000 UNIT(1.25MG) CAP PO SCH (09:00)
[2020-09-11] MEDS: ENOXAPARIN SOD 40 MG/0.4 ML SYRINGE SC SCH (10:00)
[2020-09-11] MEDS: CLOPIDOGREL BISULFATE 75 MG TAB PO SCH (10:00)
[2020-09-11] MEDS: FUROSEMIDE 40 MG/4 ML VIAL IV SCH (10:00)
[2020-09-11 10:29] LABS: INR 1.09 (0.9-1.15); Partial Thromboplastin Time 27.1 sec (23.0-31.2)
[2020-09-11] MEDS: InsuLIN REG 1unit/0.01ml Soln (100units/ml) SC SCH ×3 (11:30→21:53)
[2020-09-11] MEDS: CARVEDILOL 12.5 MG TAB PO SCH ×2 (11:31→21:48)
[2020-09-11] MEDS: LISINOPRIL 20 MG TAB PO SCH (11:32)
[2020-09-11] MEDS: ACCU-CHEK COMFORT CURVE STRIP VI SCH ×3 (11:32→21:42)
[2020-09-11 13:00] VITALS: BP 126/69
[2020-09-11] MEDS ORDERED: IODIXANOL 320MG/ML 100ML BTL IV ONE (13:36)
[2020-09-11] MEDS ORDERED: LIDOCAINE 2%HCL (LOCAL ANESTH.) INJ 20ML MDV ONE (13:36)
[2020-09-11] MEDS ORDERED: fentaNYL CITRATE 100 MCG/2 ML VL ONE (13:37)
[2020-09-11] MEDS ORDERED: ANGIOMAX 250 MG VIAL IV ONE ×2 (13:37→15:06)
[2020-09-11] MEDS ORDERED: SODIUM CHL 0.9% 50 ML ONE ×2 (13:38→15:06)
[2020-09-11] MEDS ORDERED: MIDAZOLAM HCL 1MG/1ML-2 ML VIAL ONE (13:38)
[2020-09-11] MEDS ORDERED: IOHEXOL 350 MG/ML 100ML IJ ONE (15:13)
[2020-09-11] MEDS ORDERED: CLOPIDOGREL 300 MG TAB ONE (15:23)
[2020-09-11] MEDS: ATORVASTATIN 20 MG TAB PO SCH (21:48)
[2020-09-11 22:00] VITALS: BP 112/69
[2020-09-12 05:00] VITALS: BP 114/60
[2020-09-12] MEDS: SODIUM CHLOR 0.9% PF (SALINE LOCK) 10ML VIAL/SYR IV SCH (06:08)
[2020-09-12 06:09] LABS: BUN/Creatinine Ratio 21.9; Calcium 8.5 mg/dL (8.5-10.1)
[2020-09-12] MEDS: ACCU-CHEK COMFORT CURVE STRIP VI SCH ×2 (06:18→11:57)
[2020-09-12] MEDS: InsuLIN REG 1unit/0.01ml Soln (100units/ml) SC SCH ×2 (06:49→11:59)
[2020-09-12 09:32] VITALS: BP 115/81
[2020-09-12] MEDS: CLOPIDOGREL BISULFATE 75 MG TAB PO SCH (09:39)
[2020-09-12] MEDS: ENOXAPARIN SOD 40 MG/0.4 ML SYRINGE SC SCH (09:39)
[2020-09-12] MEDS: LISINOPRIL 20 MG TAB PO SCH (09:40)
[2020-09-12] MEDS: CARVEDILOL 12.5 MG TAB PO SCH (09:40)
[2020-09-12] MEDS: FUROSEMIDE 40 MG/4 ML VIAL IV SCH (09:41)
[2020-09-12] MEDS ORDERED: ERGOCALCIFEROL 50,000 UNIT(1.25MG) CAP PO SCH (10:00)
[2020-09-12] MEDS ORDERED: CLOP75TA28 PO (12:41)
[2020-09-12] MEDS ORDERED: ERGO1CAP23 PO (12:41)
[2020-09-12] MEDS ORDERED: ATOR20TA50 PO (12:41)
[2020-09-12] MEDS ORDERED: ASPI81CH74 PO (12:41)
[2020-09-12] MEDS ORDERED: ASPirin 81 mg TAB PO ONE (12:45)
[2020-09-12 13:00] VITALS: BP 111/80
[2020-09-12 13:30] VITALS: BP 111/80
== END 2020-09-12 15:16 | disposition still patient (30) ==
LOC: TELE-CENTR 14:18 → INTOOBSV 14:18
PROVIDERS: ADMIT Internal Medicine; ATTEND Internal Medicine
DX: I35.0 Nonrheumatic aortic (valve) stenosis (principal); Z20.822 Contact with and (suspected) exposure to COVID-19; I11.0 Hypertensive heart disease with heart failure; I50.33 Acute on chronic diastolic (congestive) heart failure; I25.10 Atherosclerotic heart disease of native coronary artery without angina pectoris; D64.9 Anemia, unspecified; I48.0 Paroxysmal atrial fibrillation; E11.9 Type 2 diabetes mellitus without complications; E66.9 Obesity, unspecified; E78.5 Hyperlipidemia, unspecified; E55.9 Vitamin D deficiency, unspecified; J98.11 Atelectasis; R07.89 Other chest pain; R06.02 Shortness of breath; Z79.02 Long term (current) use of antithrombotics/antiplatelets; Z79.84 Long term (current) use of oral hypoglycemic drugs; Z95.1 Presence of aortocoronary bypass graft; Z79.899 Other long term (current) drug therapy; Z98.890 Other specified postprocedural states; Z68.42 Body mass index [BMI] 45.0-49.9, adult
CPT/HCPCS: 36415; 71046; 78452; 80048; 80053; 80061; 81001; 82043; 82270; 82306; 82962; 83735; 83880; 84484; 85025; 85379; 85610; 85730; 86850; 86900; 86901; 87426; 93017; 93306; 93453; 96372; 96374; 96375; 96376; A9500; C1725; C1751; C1760; C1769; C1874; C1887; C1894; G0378; J0153; J0583; J1644; J1650; J1815; J1940; J2250; J3010; J7030; Q9967; 99152; 99153

== ENCOUNTER → 2021-07-22 | Outpatient (CLI) | payer OTHER ==
[~2021-07-22] MED LIST changes: +ASPI81CH74 PO; +ATOR20TA50 PO; +ERGO1CAP23 PO; +POTA10TA51 PO; -SIMV-8 PO
[2021-07-22 09:27] LABS: Hemoglobin 12.3 g/dL (13.5-17.5); Monocytes # (auto) 0.6 10 ^3/uL (0-1.3)
[2021-07-22 09:30] LABS: Basophils # (auto) 0.1 10 ^3/uL (0-0.2); Eosinophils # (auto) 0.2 10 ^3/uL (0-0.8); Eosinophils % (auto) 3.3 % (0.0-7.0); Hematocrit 38.3 % (41.0-53.0); Lymphocytes % (auto) 14.1 % (10.0-50.0); Neutrophils # (auto) 4.9 10 ^3/uL (1.6-8.6); Neutrophils % (auto) 72.6 % (37.0-80.0); Red Blood Cells 4.92 10^6/uL (4.5-5.90); White Blood Cell 6.7 10^3/uL (4.4-10.8)
[2021-07-22 10:17] LABS: Potassium 4.6 mmol/L (3.5-5.1)
[2021-07-22 10:28] LABS: Albumin 3.6 g/dL (3.4-5.0); Bilirubin, Total 0.4 mg/dL (0.2-1.0); Calcium 9.2 mg/dL (8.5-10.1); Total Protein 7.7 g/dL (6.4-8.2)
== END | disposition home or self-care (01) ==
LOC: LAB 08:43
PROVIDERS: ATTEND Internal Medicine
DX: I35.9 Nonrheumatic aortic valve disorder, unspecified (principal); E11.42 Type 2 diabetes mellitus with diabetic polyneuropathy
CPT/HCPCS: 36415; 80053; 80061; 82306; 82607; 83036; 85025

== ENCOUNTER → 2021-09-07 | Outpatient (CLI) | payer OTHER ==
[2021-09-07 08:31] LABS: Hemoglobin 12.7 g/dL (13.5-17.5); Mean Corpuscular Volume 78.1 fL (80.0-100.0)
[2021-09-07 08:32] LABS: Hematocrit 38.6 % (41.0-53.0); Mean Corpuscular Hemoglobin 25.7 pg (28.0-32.0); Mean Corpuscular Hgb Conc. 32.9 g/dL (32.0-36.0); Red Blood Cells 4.95 10^6/uL (4.5-5.90); Red Cell Distribution Width 18.1 % (11.8-14.3); White Blood Cell 9.4 10^3/uL (4.4-10.8)
[2021-09-07 08:41] LABS: Basophils % (manual) 0 (0.0-2.0); Blast Cells 0; Myelocytes % 0; Promyelocytes % 0; Reactive Lymphocytes 0
[2021-09-07 08:59] LABS: Band Neutrophils % (manual) 6; Eosinophils % (manual) 7 (0-7); Lymphocytes % (manual) 18 (10.0-50.0); Metamyelocytes % 1; Monocytes % (manual) 7 (0-12)
[2021-09-07 09:02] LABS: Potassium 4.6 mmol/L (3.5-5.1)
[2021-09-07 09:06] LABS: BUN/Creatinine Ratio 17.9; Calcium 8.6 mg/dL (8.5-10.1)
== END | disposition home or self-care (01) ==
LOC: LAB 08:15
PROVIDERS: ATTEND Internal Medicine Cardiovascular Disease
DX: I35.0 Nonrheumatic aortic (valve) stenosis (principal)
CPT/HCPCS: 36415; 80048; 85007; 85027

== ENCOUNTER → 2022-01-27 | Outpatient (CLI) | payer OTHER ==
[2022-01-27 08:58] LABS: Basophils # (auto) 0 10 ^3/uL (0-0.2); Eosinophils # (auto) 0.3 10 ^3/uL (0-0.8); Lymphocytes # (auto) 1.1 10 ^3/uL (0.4-5.4); Monocytes # (auto) 0.5 10 ^3/uL (0-1.3); Neutrophils % (auto) 71.1 % (37.0-80.0)
[2022-01-27 09:00] LABS: Basophils % (auto) 0.6 % (0.0-2.0); Hematocrit 37.8 % (41.0-53.0); Hemoglobin 12.1 g/dL (13.5-17.5); Lymphocytes % (auto) 17.1 % (10.0-50.0); Mean Corpuscular Hemoglobin 25.6 pg (28.0-32.0); Mean Corpuscular Volume 79.9 fL (80.0-100.0); Monocytes % (auto) 7.2 % (0.0-12.0); Neutrophils # (auto) 4.7 10 ^3/uL (1.6-8.6); Red Blood Cells 4.73 10^6/uL (4.5-5.90); Red Cell Distribution Width 17.4 % (11.8-14.3); White Blood Cell 6.6 10^3/uL (4.4-10.8)
[2022-01-27 09:07] LABS: Urine Bacteria NONE SEEN /hpf (None Seen); Urine Blood Negative /uL (Negative); Urine Hyaline Cast FEW /lpf (0 - 2); Urine Specific Gravity 1.011 (1.001-1.035); Urine WBC 1 /hpf (0 - 3)
[2022-01-27 09:52] LABS: Calcium 8.6 mg/dL (8.5-10.1); Potassium 4.5 mmol/L (3.5-5.1)
[2022-01-27 10:33] LABS: Free T4 (Free Thyroxine) 1.11 ng/dL (0.89-1.76); Prostate Specific Antigen 0.98 ng/mL (0.0-4.0)
[2022-01-27 12:45] LABS: Micro Albumin 41.6 mg/L (0-30.0)
== END | disposition home or self-care (01) ==
LOC: LAB 08:05
PROVIDERS: ATTEND Internal Medicine
DX: E11.22 Type 2 diabetes mellitus with diabetic chronic kidney disease (principal); N18.9 Chronic kidney disease, unspecified
CPT/HCPCS: 36415; 80048; 81001; 82043; 82274; 82306; 83036; 84153; 84439; 84443; 85025

== ENCOUNTER 2022-03-22 14:51 | Inpatient (IN) | payer OTHER ==
[~2022-03-22] VITALS: Ht 177.8 cm; Wt 121.0 kg
[2022-03-22 15:59] LABS: Eosinophils # (auto) 0.4 10 ^3/uL (0-0.8); Monocytes # (auto) 0.7 10 ^3/uL (0-1.3); Monocytes % (auto) 8.8 % (0.0-12.0); Nucleated Red Blood Cells % 0.1 %
[2022-03-22 16:00] LABS: Basophils # (auto) 0.1 10 ^3/uL (0-0.2); Basophils % (auto) 0.7 % (0.0-2.0); Hematocrit 36.6 % (41.0-53.0); Hemoglobin 11.8 g/dL (13.5-17.5); Lymphocytes % (auto) 11.9 % (10.0-50.0); Mean Corpuscular Hemoglobin 25.5 pg (28.0-32.0); Mean Corpuscular Hgb Conc. 32.1 g/dL (32.0-36.0); Mean Corpuscular Volume 79.5 fL (80.0-100.0); Neutrophils % (auto) 73.6 % (37.0-80.0); Red Blood Cells 4.61 10^6/uL (4.5-5.90); Red Cell Distribution Width 17.6 % (11.8-14.3); White Blood Cell 8.2 10^3/uL (4.4-10.8)
[2022-03-22 16:14] LABS: Albumin 3.6 g/dL (3.4-5.0); BUN/Creatinine Ratio 20.3; Calcium 8.9 mg/dL (8.5-10.1); Potassium 4.3 mmol/L (3.5-5.1)
[2022-03-22 16:17] LABS: Bilirubin, Total 0.4 mg/dL (0.2-1.0); INR 1.05 (0.9-1.15); Partial Thromboplastin Time 27.7 sec (24.6-33.4); Total Protein 7.5 g/dL (6.4-8.2)
[2022-03-22] MEDS ORDERED: FUROSEMIDE 100 MG/10ML VIAL IV ONE (16:30)
[2022-03-22] MEDS ORDERED: ACETAMINOPHEN 325 MG TAB PO PRN (19:30)
[2022-03-22] MEDS ORDERED: NITROGLYCERIN 0.4 MG SL TAB SL PRN (19:30)
[2022-03-22] MEDS ORDERED: MORPHINE SULFATE INJ 2 MG/ml SYRG IV PRN (19:30)
[2022-03-22] MEDS ORDERED: ALBUTEROL SULF 2.5 MG/0.5ML(0.5%) NEB SOLN NEB PRN (19:45)
[2022-03-22] MEDS ORDERED: DEXTROSE (50%) 50ML SYRG IV PRN (19:45)
[2022-03-22 20:07] LABS: % Iron Saturation 6.2 % (20-55)
[2022-03-22 20:11] LABS: Cholesterol 82 mg/dL (< 200); Triglycerides 247 mg/dL (< 150)
[2022-03-22 20:15] VITALS: BP 112/36
[2022-03-22 20:15] LABS: HDL Cholesterol 20 mg/dL (40-59); LDL Cholesterol 44 mg/dL (< 100)
[2022-03-23 03:20] LABS: Basophils # (auto) 0 10 ^3/uL (0-0.2); Eosinophils # (auto) 0.4 10 ^3/uL (0-0.8); Lymphocytes # (auto) 1.2 10 ^3/uL (0.4-5.4); Monocytes # (auto) 0.8 10 ^3/uL (0-1.3); Nucleated Red Blood Cells % 0.1 %
[2022-03-23 03:21] LABS: Basophils % (auto) 0.5 % (0.0-2.0); Eosinophils % (auto) 4.9 % (0.0-7.0); Hematocrit 35.8 % (41.0-53.0); Hemoglobin 11.4 g/dL (13.5-17.5); Lymphocytes % (auto) 14.5 % (10.0-50.0); Mean Corpuscular Hemoglobin 25.3 pg (28.0-32.0); Monocytes % (auto) 10.1 % (0.0-12.0); Neutrophils # (auto) 5.6 10 ^3/uL (1.6-8.6); Red Blood Cells 4.53 10^6/uL (4.5-5.90); Red Cell Distribution Width 17.6 % (11.8-14.3); White Blood Cell 8.1 10^3/uL (4.4-10.8)
[2022-03-23 03:35] LABS: Albumin 3.6 g/dL (3.4-5.0); BUN/Creatinine Ratio 20.2; Calcium 8.9 mg/dL (8.5-10.1); Potassium 4.1 mmol/L (3.5-5.1)
[2022-03-23 03:38] LABS: Bilirubin, Total 0.5 mg/dL (0.2-1.0); Total Protein 7.3 g/dL (6.4-8.2)
[2022-03-23] MEDS: ACCU-CHEK COMFORT CURVE STRIP VI SCH ×5 (07:00→22:31)
[2022-03-23] MEDS: InsuLIN REG 1unit/0.01ml Soln (100units/ml) SC SCH ×5 (07:00→22:34)
[2022-03-23] MEDS: SODIUM CHLOR 0.9% PF (SALINE LOCK) 10ML VIAL/SYR IV SCH ×4 (09:37→22:31)
[2022-03-23] MEDS: ASCORBIC ACID 500 MG TAB PO SCH ×3 (10:00→22:31)
[2022-03-23] MEDS: ENOXAPARIN SOD 40 MG/0.4 ML SYRINGE SC SCH (10:11)
[2022-03-23] MEDS: MULTIPLE VITAMIN TAB PO SCH (10:11)
[2022-03-23] MEDS: ZINC SULFATE 220mg CAP or TAB PO SCH (10:11)
[2022-03-23] MEDS: FUROSEMIDE 20 MG/2 ML VIAL IV SCH (10:30)
[2022-03-23 23:05] VITALS: BP 122/54
[2022-03-23] MEDS ORDERED: PNEUMOCOCCAL VACC POLYS 25 MCG/0.5 ML VIAL IM ONE (23:30)
[2022-03-24 05:00] VITALS: BP 128/55
[2022-03-24] MEDS: ACCU-CHEK COMFORT CURVE STRIP VI SCH ×4 (06:41→22:01)
[2022-03-24] MEDS: SODIUM CHLOR 0.9% PF (SALINE LOCK) 10ML VIAL/SYR IV SCH ×3 (06:41→21:34)
[2022-03-24] MEDS: InsuLIN REG 1unit/0.01ml Soln (100units/ml) SC SCH ×4 (06:42→22:02)
[2022-03-24 08:00] VITALS: BP 139/64
[2022-03-24 09:00] VITALS: BP 139/64
[2022-03-24] MEDS: ASCORBIC ACID 500 MG TAB PO SCH ×2 (09:33→21:32)
[2022-03-24] MEDS: ZINC SULFATE 220mg CAP or TAB PO SCH (09:33)
[2022-03-24] MEDS: ENOXAPARIN SOD 40 MG/0.4 ML SYRINGE SC SCH (09:33)
[2022-03-24] MEDS: MULTIPLE VITAMIN TAB PO SCH (09:33)
[2022-03-24] MEDS: FUROSEMIDE 20 MG/2 ML VIAL IV SCH ×2 (09:34→17:55)
[2022-03-24 13:00] VITALS: BP 134/69
[2022-03-24] MEDS ORDERED: ASPirin 81 mg TAB PO ONE (13:15)
[2022-03-24] MEDS ORDERED: CARVEDILOL 12.5 MG TAB PO ONE (13:15)
[2022-03-24 16:35] VITALS: BP 98/47
[2022-03-24] MEDS: ATORVASTATIN 20 MG TAB PO SCH (21:33)
[2022-03-24] MEDS: CARVEDILOL 12.5 MG TAB PO SCH (21:34)
[2022-03-24 22:07] VITALS: BP 112/46
[2022-03-25 04:50] VITALS: BP 127/73
[2022-03-25] MEDS: FUROSEMIDE 20 MG/2 ML VIAL IV SCH (06:07)
[2022-03-25] MEDS: ACCU-CHEK COMFORT CURVE STRIP VI SCH ×4 (06:10→21:47)
[2022-03-25] MEDS: SODIUM CHLOR 0.9% PF (SALINE LOCK) 10ML VIAL/SYR IV SCH ×3 (06:10→21:45)
[2022-03-25] MEDS: InsuLIN REG 1unit/0.01ml Soln (100units/ml) SC SCH ×4 (06:10→21:56)
[2022-03-25 09:00] VITALS: BP 116/56
[2022-03-25] MEDS: ENOXAPARIN SOD 40 MG/0.4 ML SYRINGE SC SCH (09:23)
[2022-03-25] MEDS: MULTIPLE VITAMIN TAB PO SCH (09:23)
[2022-03-25] MEDS: ASCORBIC ACID 500 MG TAB PO SCH ×2 (09:23→21:47)
[2022-03-25] MEDS: ZINC SULFATE 220mg CAP or TAB PO SCH (09:23)
[2022-03-25] MEDS: CARVEDILOL 12.5 MG TAB PO SCH ×2 (09:24→21:46)
[2022-03-25] MEDS ORDERED: ASPirin 81 mg TAB PO SCH (10:00)
[2022-03-25 13:00] VITALS: BP 105/42
[2022-03-25 17:00] VITALS: BP 117/60
[2022-03-25] MEDS ORDERED: FUROSEMIDE 100 MG/10ML VIAL IV ONE (17:00)
[2022-03-25] MEDS: ATORVASTATIN 20 MG TAB PO SCH (21:46)
[2022-03-25 22:00] VITALS: BP 106/66
[2022-03-26 01:17] VITALS: BP 106/66
[2022-03-26 05:00] VITALS: BP 114/50
[2022-03-26] MEDS: ACCU-CHEK COMFORT CURVE STRIP VI SCH (05:36)
[2022-03-26] MEDS: SODIUM CHLOR 0.9% PF (SALINE LOCK) 10ML VIAL/SYR IV SCH (05:36)
[2022-03-26] MEDS: InsuLIN REG 1unit/0.01ml Soln (100units/ml) SC SCH (05:50)
[2022-03-26 08:00] VITALS: BP 120/72
[2022-03-26 09:00] VITALS: BP 120/72
[2022-03-26 10:09] VITALS: BP 111/70
== END 2022-03-26 10:45 | disposition home or self-care (01) | DRG 291 ==
LOC: ER 14:51 → TELE 19:30 → TELE-WESTW 03-23 21:45
PROVIDERS: ADMIT Nurse Practitioner Family; ATTEND Family Medicine
DX: I13.0 Hypertensive heart and chronic kidney disease with heart failure and stage 1 through stage 4 chronic kidney disease, or unspecified chronic kidney disease (principal); I50.43 Acute on chronic combined systolic (congestive) and diastolic (congestive) heart failure; N17.9 Acute kidney failure, unspecified; E66.01 Morbid (severe) obesity due to excess calories; I25.10 Atherosclerotic heart disease of native coronary artery without angina pectoris; Z68.38 Body mass index [BMI] 38.0-38.9, adult; E11.51 Type 2 diabetes mellitus with diabetic peripheral angiopathy without gangrene; E11.22 Type 2 diabetes mellitus with diabetic chronic kidney disease; N18.30 Chronic kidney disease, stage 3 unspecified; D64.9 Anemia, unspecified; J44.9 Chronic obstructive pulmonary disease, unspecified; E78.00 Pure hypercholesterolemia, unspecified; Z20.822 Contact with and (suspected) exposure to COVID-19; R09.89 Other specified symptoms and signs involving the circulatory and respiratory systems; Z82.49 Family history of ischemic heart disease and other diseases of the circulatory system; I25.2 Old myocardial infarction; Z83.3 Family history of diabetes mellitus; Z95.2 Presence of prosthetic heart valve; Z95.5 Presence of coronary angioplasty implant and graft; Z95.1 Presence of aortocoronary bypass graft; Z91.198 Patient's noncompliance with other medical treatment and regimen for other reason
CPT/HCPCS: 36415; 71045; 80053; 80061; 82962; 83036; 83540; 83550; 83880; 84443; 84484; 85025; 85379; 85610; 85730; 87426; 93005; G0378; J1815

== ENCOUNTER → 2022-03-28 | Outpatient (CLI) | payer OTHER ==
[2022-03-28 09:59] LABS: Basophils # (auto) 0 10 ^3/uL (0-0.2); Eosinophils # (auto) 0.4 10 ^3/uL (0-0.8); Mean Corpuscular Hemoglobin 25.2 pg (28.0-32.0); Monocytes # (auto) 0.8 10 ^3/uL (0-1.3); Nucleated Red Blood Cells % 0.1 %; Red Cell Distribution Width 17.8 % (11.8-14.3)
[2022-03-28 10:04] LABS: Basophils % (auto) 0.7 % (0.0-2.0); Eosinophils % (auto) 5.2 % (0.0-7.0); Hematocrit 36.9 % (41.0-53.0); Hemoglobin 11.7 g/dL (13.5-17.5); Lymphocytes % (auto) 14.1 % (10.0-50.0); Mean Corpuscular Hgb Conc. 31.7 g/dL (32.0-36.0); Mean Corpuscular Volume 79.5 fL (80.0-100.0); Monocytes % (auto) 11.1 % (0.0-12.0); Neutrophils % (auto) 68.9 % (37.0-80.0); Red Blood Cells 4.64 10^6/uL (4.5-5.90); White Blood Cell 7.2 10^3/uL (4.4-10.8)
[2022-03-28 10:25] LABS: Potassium 4.6 mmol/L (3.5-5.1)
[2022-03-28 10:33] LABS: Albumin 3.5 g/dL (3.4-5.0); Bilirubin, Total 0.5 mg/dL (0.2-1.0); Calcium 8.7 mg/dL (8.5-10.1); Total Protein 8.1 g/dL (6.4-8.2)
== END | disposition home or self-care (01) ==
LOC: LAB 09:01
PROVIDERS: ATTEND Family Medicine
DX: N17.0 Acute kidney failure with tubular necrosis (principal)
CPT/HCPCS: 36415; 80053; 85025

== ENCOUNTER → 2022-07-04 | Outpatient (CLI) | payer OTHER ==
[~2022-07-04] MED LIST changes: +BUME1TAB25 PO; +SACU1TAB PO
[2022-07-04 09:19] LABS: Basophils # (auto) 0 10 ^3/uL (0-0.2); Eosinophils # (auto) 0.6 10 ^3/uL (0-0.8); Lymphocytes # (auto) 1.2 10 ^3/uL (0.4-5.4); Lymphocytes % (auto) 14.3 % (10.0-50.0); White Blood Cell 8.4 10^3/uL (4.4-10.8)
[2022-07-04 09:20] LABS: Basophils % (auto) 0.5 % (0.0-2.0); Hematocrit 39.4 % (41.0-53.0); Hemoglobin 12.7 g/dL (13.5-17.5); Mean Corpuscular Hemoglobin 24.5 pg (28.0-32.0); Mean Corpuscular Hgb Conc. 32.2 g/dL (32.0-36.0); Mean Corpuscular Volume 76.1 fL (80.0-100.0); Monocytes # (auto) 0.7 10 ^3/uL (0-1.3); Monocytes % (auto) 8.6 % (0.0-12.0); Neutrophils # (auto) 5.9 10 ^3/uL (1.6-8.6); Neutrophils % (auto) 69.6 % (37.0-80.0); Nucleated Red Blood Cells % 0.1 %; Red Blood Cells 5.18 10^6/uL (4.5-5.90); Red Cell Distribution Width 19.8 % (11.8-14.3)
[2022-07-04 10:10] LABS: Folate (Folic Acid) 13.46 ng/mL (5.38-24)
[2022-07-04 10:12] LABS: Urine Bacteria NONE SEEN /hpf (None Seen); Urine Blood Negative /uL (Negative); Urine Specific Gravity 1.011 (1.001-1.035); Urine WBC <1 /hpf (0 - 3)
[2022-07-04 10:34] LABS: Calcium 8.9 mg/dL (8.5-10.1); Potassium 4.2 mmol/L (3.5-5.1)
[2022-07-04 10:36] LABS: BUN/Creatinine Ratio 14.9
[2022-07-04 14:45] LABS: Micro Albumin 14.1 mg/L (0-30.0)
[2022-07-06 15:12] LABS: Creatinine Clearance, Urine 36.28 mL/min (75-115)
== END | disposition home or self-care (01) ==
LOC: LAB 08:14
PROVIDERS: ATTEND Nurse Practitioner
DX: E11.22 Type 2 diabetes mellitus with diabetic chronic kidney disease (principal); N18.9 Chronic kidney disease, unspecified
CPT/HCPCS: 36415; 80048; 81001; 82043; 82570; 82575; 82607; 82746; 83036; 84403; 84443; 85025